=== PATIENT | female | born 1960 | race African-American/Black ===

== ENCOUNTER 2017-03-16 04:59 | Emergency (ER) | payer OTHER ==
--- NOTE | 2017-03-16 06:51 | ER Document Report ---
HPI - HPI Patient complains to provider of: Itchy rash Onset: Other - Friday Onset/Duration: Persistent, Waxing and waning Pain Level: 4 Context: 57-year-old female slept in the [facility] over the weekend in [place]. Friday morning she woke up with what she thought was bite on her left volar forearm. Friday she woke up and had similar spreading areas to bilateral dorsal hands, face, right neck, behind both thighs. She thought maybe it was bedbugs but they did not find any bedbugs in the hotel room. Nobody else in the room got bitten. She is unsure what started this. Associated Symptoms: None Exacerbated by: Denies Relieved by: Other - Benadryl Similar symptoms previously: No Recently seen / treated by doctor: No - ROS ROS below otherwise negative: Yes Systems Reviewed and Negative: Yes All other systems reviewed and negative - DERM Skin Color: Normal Past Medical History - General Information source: Patient - Social History Smoking Status: Never Smoker Frequency of alcohol use: None Drug Abuse: None Lives with: Family Family History: Reviewed & Not Pertinent - Past Medical History Cardiac Medical History: Reports: Hx Hypertension - Takes hydrochlorothiazide no HUBER inhibitor Renal/ Medical History: Denies: Hx Peritoneal Dialysis Surgical Hx: Negative Vertical Provider Document - CONSTITUTIONAL Agree With Documented VS: Yes Exam Limitations: No Limitations - HEENT HEENT: Atraumatic, Normocephalic. negative: Pharyngeal Erythema - NECK Neck: Supple - RESPIRATORY Respiratory: Breath Sounds Normal, No Respiratory Distress O2 Sat by Pulse Oximetry: 97 - CARDIOVASCULAR Cardiovascular: Regular Rate, Regular Rhythm - MUSCULOSKELETAL/EXTREMETIES Musculoskeletal/Extremeties: MAEW, FROM - NEURO Level of Consciousness: Awake, Alert, Appropriate - DERM Integumentary: Rash - Urticaria, both dorsal hands, left volar forearm, behind both thighs, forehead, right earlobe neck Course - Vital Signs Vital signs: Temp Pulse Resp BP Pulse Ox 98.3 F 90 18 136/98 H 97 03/16/17 05:08 03/16/17 05:08 03/16/17 05:08 03/16/17 05:08 03/16/17 05:08 Discharge - Discharge Clinical Impression: Urticaria Condition: Good Disposition: HOME, SELF-CARE Instructions: Acute Urticaria ([facility]), Acid-Suppressing Medication ([facility]), Use of Diphenhydramine, Steroid Medication Additional Instructions: see dr. onofre for follow up continue the benadryl over the counter 25-50mg every 4-6 hours for th attenuatione rash continue the over the counter pepcid 20mg twice a day steroids by mouth until gone to er if worse Please complete the patient satisfaction survey if you get one, and return it.. If you do not receive a survey, then you can go to the [facility] website, [email or web address] and place your comments about your very good care. Thank you very much. It was a pleasure being your medical provider today. Prescriptions: Prednisone [Deltasone 10 mg Tablet] 10 mg PO ASDIR PRN #15 tablet PRN Reason:
[2017-03-16] MEDS ORDERED: PREDNISONE 20 MG TABLET PO ONE (07:22)
[2017-03-16] MEDS ORDERED: FAMOTIDINE 20 MG TABLET PO ONE (07:22)
[2017-03-16 08:22] VITALS: BP 121/83
== END 2017-03-16 08:22 | disposition home or self-care (01) ==
LOC: ER 04:59
DX: L50.9 Urticaria, unspecified (principal); I10 Essential (primary) hypertension; Z79.899 Other long term (current) drug therapy
CPT/HCPCS: 99282; J7512